=== PATIENT | female | born 1990 | race Caucasian/White ===

== ENCOUNTER 2018-06-02 14:23 | Emergency (ER) | payer OTHER, MEDICAID ==
[~2018-06-02] VITALS: Ht 165.1 cm; Wt 99.8 kg
[~2018-06-02 14:23] MED LIST: ACETAMINOPHEN-1 EAC1 PO; ACETAMINOPHEN325 M1 PO; AFRIN15 ML NS; AMOXICILLI250 MG/51 PO; AMOXICILLIN 50500 MG; APAP500 PO; BACTROBAN CREAM30 G1 TOP; BENTYL 20 MG TA20 M1 PO; BENTYL20 MG PO; CARAFATE1 GM PO; CEFDINIR300 MG PO; CEPHALEXIN 500500 M3 PO; CIPRO500 MG PO; CITRATE OF MAG296 ML PO; DIFLUCAN200 MG PO; FIORICET 50-321 EACH PO; FLAGYL500 MG PO; FLEXERIL PO; HYDROCODON-ACE1 EAC7 PO; HYDROCODONE-AP1 EAC6; HYDROCODONE-AP1 EAC6 PO; IBUPROFEN 600600 M1 PO; IBUPROFEN 800800 M1 PO; IMITREX20 MG PO; INVANZ 1GM/NS 101 GM IV; KEFLEX500 MG PO; LEVAQUIN 500 M500 M2 PO; LEVSIN PO; MEDROL DOSPAK21 TA1 PO; MEDROLDOSEPACK PO; NAPROSYN500 M1 PO; NAPROSYN500 MG; NAPROSYN500 MG PO; NEXPLANON68 MG; NOHOMEMEDICATIONS; NORCO 5-325 TA1 EAC1 PO; NORCO 5-325 TA1 EACH PO; OMEPRAZOLE40 MG PO; OMNICEF PO; ONDANSETRON HCL4 M2 PO; PERCOCET 5-3251 EACH PO; PHENAZOPYRIDIN200 M2 PO; PHENERGAN 25 MG25 M1; PHENERGAN 25 MG25 M1 PO; PRENATAL; PROMETHAZINE D480 ML PO; PROMETRIUM200 MG; PROVENTIL HFA6.7 G1 INH; ROBAXIN 750 MG750 M1 PO; TESSALON PERLE100 MG PO; TIGER BALM; TRAMADOL 50 MG50 MG PO; TRINATE TABLET1 TAB PO; TUSSIONEX PENN473 ML PO; TYLENOL WITH CO1 TA1 PO; ULTRAM 50MG TAB50 MG PO; ULTRAM50 MG PO; VANCOMYCIN HCL125 MG PO; VENTOLIN HFA 1818 GM; VENTOLIN HFA 1818 GM INH; VICOPROFEN 2001 EACH PO; ZOFRAN 4 MG ORAL4 MG PO; ZOFRAN ODT4 MG PO; ZOFRAN4 MG PO; ZOLOFT100 MG; ZPAK PO
[2018-06-02] MEDS ORDERED: PHENERGAN 25 MG25 M1 PO (15:19)
[2018-06-02] MEDS ORDERED: BUTALB-APAP-CA1 EACH PO (15:21)
[2018-06-02 16:12] VITALS: BP 123/82
== END 2018-06-02 16:12 | disposition home or self-care (01) ==
LOC: M.ERS 14:23
DX: R51 Headache (principal); Z90.49 Acquired absence of other specified parts of digestive tract; Z87.442 Personal history of urinary calculi; Z90.710 Acquired absence of both cervix and uterus; Z90.721 Acquired absence of ovaries, unilateral

== ENCOUNTER 2019-04-07 08:14 | Emergency (ER) | payer OTHER ==
[~2019-04-07] VITALS: Ht 165.1 cm; Wt 90.7 kg
[~2019-04-07 08:14] MED LIST changes: +BUTALB-APAP-CA1 EACH PO
[2019-04-07] MEDS ORDERED: AMOXICILLIN 50500 MG PO (08:28)
[2019-04-07 08:32] VITALS: BP 135/88
== END 2019-04-07 08:34 | disposition home or self-care (01) ==
LOC: M.ERS 08:14
DX: J02.9 Acute pharyngitis, unspecified (principal); Z90.710 Acquired absence of both cervix and uterus; Z87.442 Personal history of urinary calculi

== ENCOUNTER 2019-06-07 17:52 | Emergency (ER) | payer OTHER ==
[~2019-06-07] VITALS: Ht 165.1 cm; Wt 102.1 kg
[~2019-06-07 17:52] MED LIST changes: +AMOXICILLIN 50500 MG PO
[2019-06-07] MEDS ORDERED: HYDROCODONE-ACE15 ML PO (19:53)
[2019-06-07 20:07] LABS: ABSOLUTE BASOPHILS 0.1 thou/uL (0.0-0.2); ABSOLUTE EOSINOPHILS 0.1 thou/uL (0.0-0.7); ABSOLUTE LYMPHOCYTES 2.3 thou/uL (0.8-5.3); ABSOLUTE MONOCYTES 0.6 thou/uL (0.0-1.2); BASOPHILS 0.7 %; EOSINOPHILS 1.5 %; HEMATOCRIT 41.2 % (37.0-47.0); HEMOGLOBIN 14.1 gm/dL (12.0-15.0); LYMPHOCYTES 25.4 %; MCH 31.4 pg (26.0-34.0); MCHC 34.3 g/dL (28.0-37.0); MCV 91.6 fL (80.0-100.0); MONOCYTES 6.4 %; MPV 9.8 fl. (7.2-11.1); NUCLEATED RBCS 0 /100WBC; PLATELET COUNT* 203 thou/uL (150-400); RDW-CV 12.6 % (10.5-14.5); WBC 9.1 thou/uL (4.0-11.0)
[2019-06-07 20:47] VITALS: BP 121/85
== END 2019-06-07 20:48 | disposition home or self-care (01) ==
LOC: M.ERS 17:52
PROVIDERS: Emergency Medicine
DX: J02.9 Acute pharyngitis, unspecified (principal); Z90.710 Acquired absence of both cervix and uterus; Z87.442 Personal history of urinary calculi

== ENCOUNTER 2020-06-24 08:58 | Emergency (ER) | payer OTHER ==
[~2020-06-24] VITALS: Ht 165.1 cm; Wt 104.3 kg
[~2020-06-24 08:58] MED LIST changes: +HYDROCODONE-ACE15 ML PO
[2020-06-24] MEDS ORDERED: PREDNISONE 20 M20 M1 PO (10:17)
[2020-06-24] MEDS ORDERED: ZPAK PO (10:17)
[2020-06-24] MEDS ORDERED: ZOFRAN ODT4 MG SUBLING (10:17)
[2020-06-24 10:23] VITALS: BP 121/87
== END 2020-06-24 10:24 | disposition home or self-care (01) ==
LOC: M.ERS 08:58
DX: U07.1 COVID-19 (principal); Z90.49 Acquired absence of other specified parts of digestive tract; Z90.710 Acquired absence of both cervix and uterus